=== PATIENT | male | born 1985 | race Caucasian/White ===

== ENCOUNTER 2024-07-05 19:08 | Inpatient (IN) | payer MEDICAID ==
[~2024-07-05] VITALS: Ht 175.3 cm; Wt 66.0 kg
[2024-07-05] MEDS: ONDANSETRON HCL 4 MG/2 ML VIAL IVP ONE (19:41)
[2024-07-05] MEDS: SODIUM CHLORIDE 0.9% 1,000 ML IV ONE (19:41)
[2024-07-05 23:52] LABS: BASOPHILS % (AUTO) 0.3 % (0.0-2.0); EOSINOPHILS % (AUTO) 0.4 % (1.0-6.0); HEMATOCRIT 39.9 % (41-53); HEMOGLOBIN 13.2 g/dL (13.5-17.5); LYMPHOCYTES # (AUTO) 1.1 K/uL (1.0-4.8); LYMPHOCYTES % (AUTO) 8.7 % (22.0-44.0); MEAN CORPUSCULAR HEMOGLOBIN 34.1 pg (26.0-34.0); MEAN CORPUSCULAR VOLUME 103 fL (80-100); MONOCYTES # (AUTO) 0.7 K/uL (0.1-1.0); MONOCYTES % (AUTO) 5.5 % (2.0-9.0); NEUTROPHILS # (AUTO) 10.5 K/uL (1.8-7.7); NEUTROPHILS % (AUTO) 85.1 % (40.0-70.0); PLATELET COUNT (AUTO) 301 K/uL (150-450); RED BLOOD CELL COUNT(AUTO) 3.86 MIL/uL (4.50-5.90); RED CELL DISTRIBUTION WIDTH 12.4 % (11.5-14.5); WHITE BLOOD COUNT (AUTO) 12.4 K/uL (4.5-11.0)
[2024-07-06 00:02] LABS: ANION GAP 9 mmol/L (8-16); CALCIUM, TOTAL 8.7 mg/dL (8.8-10.5); CARBON DIOXIDE 27 mmol/L (22-29); CHLORIDE 103 mmol/L (98-107); CREATININE 0.78 mg/dL (0.60-1.30); GLOMERULAR FILTR. RATE CALC > 60 mL/min (>60); GLUCOSE,RANDOM 92 mg/dL (70-110); POTASSIUM 3.4 mmol/L (3.5-5.1); SODIUM SERUM 139 mmol/L (136-145); UREA NITROGEN, BLOOD 12 mg/dL (7-18)
[2024-07-06 00:09] LABS: LACTIC ACID 0.7 mmol/L (0.4-2.0)
[2024-07-06 00:16] LABS: ALANINE AMINOTRANSFERASE 12 U/L (12-78); ALBUMIN 3.2 g/dL (3.4-5.0); ALKALINE PHOSPHATASE 54 U/L (46-116); ASPARTATE AMINOTRANSFERASE 11 U/L (15-37); BILIRUBIN,TOTAL 0.5 mg/dL (0.1-1.0); CREATINE KINASE, TOTAL ONLY 45 U/L (39-308); TOTAL PROTEIN, SERUM 6.5 g/dL (6.4-8.2)
[2024-07-06 00:19] LABS: ACETAMINOPHEN < 2 mcg/mL (10-30)
[2024-07-06 00:20] LABS: ALCOHOL, BLOOD (SERUM) < 3 mg/dL (0-10); SALICYLATE 1.5 mg/dL (2.8-20.0)
[2024-07-06 00:22] LABS: TROPONIN I-HIGH SENSITIVITY 171 ng/L (<76)
[2024-07-06 00:28] LABS: RBC MORPHOLOGY COMMENT ABNORMAL RBC MORPH
[2024-07-06 00:54] LABS: APPEARANCE,URINE CLEAR (CLEAR); BILIRUBIN,URINE NEGATIVE (NEGATIVE); COLOR,URINE YELLOW (YELLOW); GLUCOSE, URINE (UA) TRACE mg/dL (NEGATIVE); KETONES,URINE NEGATIVE (NEGATIVE); LEUKOCYTE ESTERASE ,URINE TRACE (NEGATIVE); NITRATE,URINE NEGATIVE (NEGATIVE); OCCULT BLOOD,URINE NEGATIVE (NEGATIVE); PROTEIN,URINE 30-70 mg/dL (NEGATIVE); SPECIFIC GRAVITIY, URINE 1.024 (1.003-1.030); UROBILINOGEN,URINE <=1.0 mg/dL (<=1.0)
[2024-07-06 01:01] LABS: ALCOHOL, URINE DRUG SCREEN NEGATIVE (NEGATIVE); AMPHET/METH SCREEN,URINE POSITIVE (NEGATIVE); BARBITURATE SCREEN, URINE NEGATIVE (NEGATIVE); BENZODIAZEPINES SCREEN,URINE NEGATIVE (NEGATIVE); CANNABINOID SCREEN,URINE POSITIVE (NEGATIVE); COCAINE SCREEN,URINE NEGATIVE (NEGATIVE); METHADONE SCREEN, URINE NEGATIVE (NEGATIVE); OPIATE SCREEN,URINE NEGATIVE (NEGATIVE); PHENCYCLIDINE SCREEN,URINE NEGATIVE (NEGATIVE)
[2024-07-06 01:05] LABS: BACTERIA,URINE None Seen /HPF (None Seen); RBC,URINE 0-2 /HPF (0-2); SQUAMOUS EPITHELIAL CELL,UR Few /LPF (None Seen); WBC,URINE 0-2 /HPF (0-5)
[2024-07-06 01:44] LABS: COVID AG,FIA SOURCE NASAL SWAB
[2024-07-06 02:02] LABS: SARS-COV2 (COVID) ANTIGEN,FIA Negative (Negative)
[2024-07-06] MEDS ORDERED: ONDANSETRON HCL 4 MG/2 ML VIAL IVP PRN (03:15)
[2024-07-06] MEDS ORDERED: NALOXONE HCL 0.4 MG/ML VIAL IVP PRN (03:15)
[2024-07-06 04:13] LABS: TROPONIN I-HIGH SENSITIVITY 128 ng/L (<76)
[2024-07-06 07:01] VITALS: O2SAT 98
[2024-07-06] MEDS: HEPARIN SODIUM,PORCINE 5,000 UNITS/ML VIAL SQ SCH (07:09)
[2024-07-06] MEDS: DOCUSATE SODIUM 100 MG CAPSULE PO SCH (08:18)
[2024-07-06 12:00] VITALS: BP 107/63; PULSE 86; RESP 17; TEMP 98.2; O2SAT 95
[2024-07-06] MEDS ORDERED: SODIUM CHLORIDE 0.9% 1,000 ML ONE (12:51)
[2024-07-06] MEDS: VANCOMYCIN HCL 1 GM in DEXTROSE 5%-WATER 250 ML IV ONE (13:02)
[2024-07-06] MEDS: CefTRIAXone 1 GM/DEXTROSE 50 ML IV ONE (13:02)
[2024-07-06] MEDS: VANCOMYCIN HCL 1 GM in DEXTROSE 5%-WATER 250 ML IV SCH (15:58)
[2024-07-06 16:00] VITALS: BP 123/78; PULSE 90; RESP 18; TEMP 97.7; O2SAT 95
[2024-07-06 20:49] VITALS: BP 117/72; PULSE 91; RESP 19; TEMP 98.6; O2SAT 93
[2024-07-06 23:54] VITALS: BP 127/86; PULSE 81; RESP 18; TEMP 98.1; O2SAT 96
[2024-07-07 04:30] VITALS: BP 129/72; PULSE 88; RESP 18; TEMP 97.9; O2SAT 95
[2024-07-07 08:02] VITALS: BP_SYST 107; BP_SYST 120; BP_DIAS 56; BP_DIAS 68; PULSE 80; PULSE 97; RESP 18; TEMP 98; O2SAT 96
[2024-07-07] MEDS: ACETAMINOPHEN 325 MG TABLET PO PRN (08:33)
[2024-07-07 10:20] LABS: BASOPHILS % (AUTO) 0.2 % (0.0-2.0); HEMATOCRIT 42.4 % (41-53); HEMOGLOBIN 14.1 g/dL (13.5-17.5); LYMPHOCYTES # (AUTO) 1.1 K/uL (1.0-4.8); LYMPHOCYTES % (AUTO) 10.1 % (22.0-44.0); MEAN CORPUSCULAR HEMOGLOBIN 34.3 pg (26.0-34.0); MEAN CORPUSCULAR HGB CONC 33.2 G/dL (31.0-37.0); MEAN CORPUSCULAR VOLUME 103 fL (80-100); MONOCYTES # (AUTO) 0.5 K/uL (0.1-1.0); MONOCYTES % (AUTO) 4.7 % (2.0-9.0); NEUTROPHILS # (AUTO) 8.8 K/uL (1.8-7.7); PLATELET COUNT (AUTO) 261 K/uL (150-450); RED BLOOD CELL COUNT(AUTO) 4.11 MIL/uL (4.50-5.90); RED CELL DISTRIBUTION WIDTH 12.5 % (11.5-14.5); WHITE BLOOD COUNT (AUTO) 10.5 K/uL (4.5-11.0)
[2024-07-07 10:39] LABS: ANION GAP 11 mmol/L (8-16); CALCIUM, TOTAL 9.4 mg/dL (8.8-10.5); CARBON DIOXIDE 26 mmol/L (22-29); CHLORIDE 100 mmol/L (98-107); CREATININE 0.87 mg/dL (0.60-1.30); GLOMERULAR FILTR. RATE CALC > 60 mL/min (>60); GLUCOSE,RANDOM 183 mg/dL (70-110); POTASSIUM 3.8 mmol/L (3.5-5.1); SODIUM SERUM 137 mmol/L (136-145); UREA NITROGEN, BLOOD 7 mg/dL (7-18)
[2024-07-07 11:34] VITALS: BP 115/68; PULSE 80; RESP 18; TEMP 97.9; O2SAT 95
[2024-07-07 15:12] VITALS: BP 135/84; PULSE 67; RESP 18; TEMP 98; O2SAT 96
[2024-07-07] MEDS: FLUoxetine HCL 20 MG CAPSULE PO SCH (15:41)
[2024-07-07] MEDS ORDERED: LITHIUM CARBONATE 300 MG CAPSULE PO SCH (21:00)
== END 2024-07-07 17:40 | disposition left against medical advice (07) | DRG 817 ==
LOC: EMS 19:08 → EDH 07-06 07:32 → 5S 07-06 10:50
PROVIDERS: ADMIT Internal Medicine; ATTEND Internal Medicine
DX: T40.412A Poisoning by fentanyl or fentanyl analogs, intentional self-harm, initial encounter (principal); R65.11 Systemic inflammatory response syndrome (SIRS) of non-infectious origin with acute organ dysfunction; G92.9 Unspecified toxic encephalopathy; F32.9 Major depressive disorder, single episode, unspecified; T43.622A Poisoning by amphetamines, intentional self-harm, initial encounter; Z20.822 Contact with and (suspected) exposure to COVID-19; R07.89 Other chest pain; F11.20 Opioid dependence, uncomplicated; F12.10 Cannabis abuse, uncomplicated; F15.10 Other stimulant abuse, uncomplicated; Y92.89 Other specified places as the place of occurrence of the external cause
CPT/HCPCS: 80048; 80053; 80307; 81001; 82550; 83605; 83735; 84484; 85025; 93005; 99285; G0480; G0481; J0696; J1644; J2405; J3370; J7030; J7060